=== PATIENT | female | born 1995 | race Caucasian/White ===

== ENCOUNTER 2017-01-20 12:16 | Emergency (ER) | payer OTHER ==
[2017-01-20 12:29] VITALS: BP 100/59
--- NOTE | 2017-01-20 12:57 | UC ---
Skin Complaint HPI - HPI Summary HPI Summary: 21 yo female with painful bug bite x 1 day she wants to make sure a tick did not bite her minimal pruritis - History of Current Complaint Chief Complaint: UCLowerExtremity Time Seen by Provider: 01/20/17 12:51 Stated Complaint: INSECT BITES Hx Obtained From: Patient Hx Last Menstrual Period: 01/12/17 Onset/Duration: Gradual Onset, Lasting Hours Timing: Constant Onset Severity: Mild Current Severity: Mild Pain Intensity: 3 Pain Scale Used: 0-10 Numeric Character: Swelling, Pain, Redness, Raised, Painful Aggravating: Touch Alleviating: Nothing Associated Signs & Symptoms: Positive: Rash, Tenderness Related History: Insect Bite/Sting - Allergy/Home Medications Allergies/Adverse Reactions: Allergies Allergy/AdvReac Type Severity Reaction Status Date / Time Amoxicillin Allergy Severe Hives Verified 01/20/17 12:29 Home Medications: Home Medications O C 1 tab PO QPM 01/20/17 [History Confirmed 01/20/17] Tea Tree Oil (Bulk) [Tea Tree Oil] 1 oil XX BID PRN 01/20/17 [History Confirmed 01/20/17] Review of Systems Constitutional: Negative Skin: Rash Eyes: Negative ENT: Negative Respiratory: Negative Cardiovascular: Negative Gastrointestinal: Negative Genitourinary: Negative Motor: Negative Neurovascular: Negative Musculoskeletal: Negative Neurological: Negative Psychological: Negative All Other Systems Reviewed And Are Negative: Yes PMH/Surg Hx/FS Hx/Imm Hx Previously Healthy: Yes - Surgical History Surgical History: Yes Surgery Procedure, Year, and Place: T&A CHILD, Right ACL 12/02/16 Dr. Louie Lamas [facility] RECONSTRUCTION SURGERY RIGHT ANKLE 04/2014 - Family History Known Family History: Positive: Hypertension - Social History Alcohol Use: Occasionally Substance Use Type: None Smoking Status (MU): Never Smoked Tobacco - Immunization History Most Recent Tetanus Shot: up to date Vaccination Up to Date: Yes Physical Exam Triage Information Reviewed: Yes Appearance: Well-Appearing, No Pain Distress, Well-Nourished Vital Signs: Initial Vital Signs Temp 99.1 F 01/20/17 12:19 Pulse 71 01/20/17 12:19 Resp 18 01/20/17 12:19 BP 100/59 01/20/17 12:19 Vital Signs Reviewed: Yes Eyes: Positive: Conjunctiva Clear ENT: Positive: Hearing grossly normal. Negative: Nasal congestion, Nasal drainage, Trismus, Muffled/hoarse voice Respiratory: Positive: Lungs clear, Normal breath sounds, No respiratory distress Cardiovascular: Positive: RRR, No Murmur Neurological: Positive: Alert Psychological Exam: Normal Skin Exam: Other - see image Course/Dx - Diagnoses Provider Diagnoses: suspect local reaction to insect bite Discharge - Discharge Plan Condition: Stable Disposition: HOME Prescriptions: Cephalexin CAP* [Keflex CAP*] 500 mg PO QID #28 cap Patient Education Materials: Insect Bite or Sting (ED) Referrals: Jason Donaldson MD [Primary Care Provider] - Additional Instructions: you may use 1% hydrocortisone cr if itching worsens recheck for worsening rash or new symptoms Images Feet (Multiple View): 1 - 1 x 2 cm. red. raised/no vesicles/no weeping
== END 2017-01-20 13:09 | disposition home or self-care (01) ==
LOC: UCCORT 12:16
DX: S80.861A Insect bite (nonvenomous), right lower leg, initial encounter (principal); W57.XXXA Bitten or stung by nonvenomous insect and other nonvenomous arthropods, initial encounter; Y93.9 Activity, unspecified; Y92.9 Unspecified place or not applicable; Z88.1 Allergy status to other antibiotic agents
CPT/HCPCS: 99212; G0463